=== PATIENT | female | born 1995 | race Two or more races ===

== ENCOUNTER 2017-06-10 01:24 | Emergency (ER) | payer MEDICAID ==
[2017-06-10 01:36] VITALS: BP 116/84
--- NOTE | 2017-06-10 03:26 | EDM.PDOC ---
ED HPI GENERAL MEDICAL PROBLEM - General Chief Complaint: CRIMINAL DEFENSE ATTORNEY Problem Stated Complaint: CRAMPING/BLEEDING/CHILLS Time Seen by Provider: 06/10/17 01:39 Source of Information: Reports: Patient, RN Notes Reviewed History Limitations: Reports: No Limitations - History of Present Illness INITIAL COMMENTS - FREE TEXT/NARRATIVE: The patient states that she has had four faintly positive home tests since this past 06/06/2017. The patient is sexually active, but does not use any protection, other than the rhythm method, to try to avoid . She developed suprapubic/pelvic cramping on , 06/07/2017. She then developed vaginal bleeding yesterday, 06/09/2017 around 09:00. Initially it was heavy, which is normal for her, as she has a history of menorrhagia, but then became light around 23:00, which is not normal for her. The patient has not passed any tissue. The patient took 800 mg of ibuprofen around noon yesterday. She states that she developed chills, shivers, and lightheadedness around 17:00. She is afebrile here in the ED. She reports recent breast tenderness. She denies having dysuria or urinary urgency, but reports urinary frequency. The patient is Ab1. Her LMP was 05/11/2017. The patient's PCP is Angela Montez. She does not have a Insulation Manager. She states that she moved to this area from [place] about 4 months ago. Lower Abdomen Pain Score (Numeric/FACES): 4 - Related Data Allergies Allergy/AdvReac Type Severity Reaction Status Date / Time dextromethorphan Allergy Fever Verified 06/10/17 01:33 [From Supress DX] [email or web address] [From Supress DX] Allergy Fever Verified 06/10/17 01:33 phenylephrine Allergy Fever Verified 06/10/17 01:33 [From Supress DX] Home Meds: Home Meds . 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: , Spontaneous (x 1), Other (See Below ) (Abnormal uterine bleeding (previously known as menorrhagia)) : 2 Para: 1 Psychiatric History: Reports: Depression, Mood Swings Endocrine/Metabolic History: Reports: Obesity/BMI 30+ - Past Surgical History HEENT Surgical History: Reports: Adenoidectomy, Naso-Sinus Surgery, Oral Surgery ([place] teeth extraction), Tonsillectomy GI Surgical History: Reports: Hernia, Abdominal (umbilical) Social & Family History - Tobacco Use Smoking Status *Q: Current Every Day Smoker Years of Tobacco use: 10 Packs/Tins Daily: 0.3 - Alcohol Use Alcohol Use History: Yes Days Per Week of Alcohol Use: 3 Number of Drinks Per Day: 1 Total Drinks Per Week: 3 Alcohol Use Frequency: Socially - Recreational Drug Use Recreational Drug Use: No - Living Situation & Occupation Living situation: Reports: Single, with Family (daughter) Occupation: Employed (analytical chemistry teacherretail sales assistant) ED ROS GENERAL - Review of Systems Review Of Systems: See Below Constitutional: Reports: No Symptoms HEENT: Reports: No Symptoms Respiratory: Reports: No Symptoms Cardiovascular: Reports: No Symptoms Endocrine: Reports: No Symptoms GI/Abdominal: Reports: No Symptoms : Reports: No Symptoms Musculoskeletal: Reports: No Symptoms Skin: Reports: No Symptoms Neurological: Reports: No Symptoms Psychiatric: Reports: No Symptoms Hematologic/Lymphatic: Reports: No Symptoms Immunologic: Reports: No Symptoms ED EXAM, GENERAL - Physical Exam Exam: See Below Exam Limited By: No Limitations General Appearance: Alert, WD/WN, No Apparent Distress Eye Exam: Bilateral Eye: Normal Inspection Ears: Normal External Exam, Hearing Grossly Normal Nose: Normal Inspection, No Blood Throat/Mouth: Normal Inspection, Normal Lips, Normal Voice, No Airway Compromise Head: Atraumatic, Normocephalic Neck: Normal Inspection, Full Range of Motion Respiratory/Chest: No Respiratory Distress, Lungs Clear, Normal Breath Sounds, No Accessory Muscle Use Cardiovascular: Normal Peripheral Pulses, Regular Rate, Rhythm, No Gallop, No JVD, No Murmur, No Rub Peripheral Pulses: 4+: Radial (L), Radial (R) GI/Abdominal: Normal Bowel Sounds, Soft, No Organomegaly, No Distention, No Abnormal Bruit, No Mass, Tender (Suprapubic tenderness only. Nontender elsewhere.), Other (Obese) (Female) Exam: Deferred Rectal (Female) Exam: Deferred Back Exam: Normal Inspection, Full Range of Motion. No: CVA Tenderness (L), CVA Tenderness (R) Extremities: Normal Inspection, Normal Range of Motion, No Pedal Edema, Normal Capillary Refill Neurological: Alert, Oriented, Normal Cognition, No Motor/Sensory Deficits Psychiatric: Normal Affect Skin Exam: Warm, Dry, Intact, Normal Color, No Rash Course - Vital Signs Last Recorded V/S: Last Vital Signs Temp 36.2 C 06/10/17 01:33 Pulse 80 06/10/17 01:33 Resp 16 06/10/17 01:33 BP 116/84 06/10/17 01:33 Pulse Ox 97 06/10/17 01:33 Orthostatic Blood Pressure [ 115/80 Standing] Orthostatic Blood Pressure [ 114/78 Sitting] Orthostatic Blood Pressure [ 115/80 Supine] - Orders/Labs/Meds Orders: Active Orders 24 hr Category Date Time Status Orthostatic Vital Signs [RC] STAT Care 06/10/17 01:57 Active Labs: Laboratory Tests 06/10/17 06/10/17 06/10/17 Range/Units 02:00 02:00 02:00 WBC 9.85 (3.98-10.04) K/mm3 RBC 5.38 H (3.98-5.22) M/mm3 Hgb 13.6 (11.2-15.7) gm/L Hct 41.3 (34.1-44.9) % MCV 76.8 L (79.4-94.8) fl MCH 25.3 L (25.6-32.2) pg MCHC 32.9 (32.2-35.5) g/dl RDW Std Deviation 38.7 (36.4-46.3) fL Plt Count 308 (182-369) K/mm3 MPV 9.8 (9.4-12.3) fl Neutrophils % (Manual) 67 H (40-60) % Band Neutrophils % 1 (0-10) % Lymphocytes % (Manual) 29 (20-40) % Atypical Lymphs % 0 % Monocytes % (Manual) 3 (2-10) % Eosinophils % (Manual) 0 L (0.7-5.8) % Basophils % (Manual) 0 L (0.1-1.2) Platelet Estimate Adequate RBC Morph Comment Normal Sodium 143 (136-145) mEq/L Potassium 3.6 (3.5-5.1) mEq/L Chloride 107 (98-107) mEq/L Carbon Dioxide 25 (21-32) mEq/L Anion Gap 14.6 (5-15) BUN 9 (7-18) mg/dL Creatinine 0.8 (0.55-1.02) mg/dL Est Cr Clr Drug Dosing 93.64 mL/min Estimated GFR (MDRD) > 60 (>60) mL/min BUN/Creatinine Ratio 11.3 L (14-18) Glucose 101 (74-106) mg/dL Calcium 8.9 (8.5-10.1) mg/dL Total Bilirubin 0.3 (0.2-1.0) mg/dL AST 20 (15-37) U/L ALT 29 (14-59) U/L Alkaline Phosphatase 94 (46-116) U/L Total Protein 7.0 (6.4-8.2) g/dl Albumin 3.6 (3.4-5.0) g/dl Globulin 3.4 gm/dL Albumin/Globulin Ratio 1.1 (1-2) HCG, Quant < 1.0 mIU/mL Urine Color (Yellow) Urine Appearance (Clear) Urine pH (5.0-8.0) Ur Specific [place] (1.005-1.030) Urine Protein (Negative) Urine Glucose (UA) (Negative) Urine Ketones (Negative) Urine Occult Blood (Negative) Urine Nitrite (Negative) Urine Bilirubin (Negative) Urine Urobilinogen (0.2-1.0) Ur Leukocyte Esterase (Negative) Urine RBC (0-5) /hpf Urine WBC (0-5) /hpf Ur Epithelial Cells (0-5) /hpf Urine Bacteria (FEW) /hpf Urine Mucus (FEW) /hpf 06/10/17 Range/Units 02:13 WBC (3.98-10.04) K/mm3 RBC (3.98-5.22) M/mm3 Hgb (11.2-15.7) gm/L Hct (34.1-44.9) % MCV (79.4-94.8) fl MCH (25.6-32.2) pg MCHC (32.2-35.5) g/dl RDW Std Deviation (36.4-46.3) fL Plt Count (182-369) K/mm3 MPV (9.4-12.3) fl Neutrophils % (Manual) (40-60) % Band Neutrophils % (0-10) % Lymphocytes % (Manual) (20-40) % Atypical Lymphs % % Monocytes % (Manual) (2-10) % Eosinophils % (Manual) (0.7-5.8) % Basophils % (Manual) (0.1-1.2) Platelet Estimate RBC Morph Comment Sodium (136-145) mEq/L Potassium (3.5-5.1) mEq/L Chloride (98-107) mEq/L Carbon Dioxide (21-32) mEq/L Anion Gap (5-15) BUN (7-18) mg/dL Creatinine (0.55-1.02) mg/dL Est Cr Clr Drug Dosing mL/min Estimated GFR (MDRD) (>60) mL/min BUN/Creatinine Ratio (14-18) Glucose (74-106) mg/dL Calcium (8.5-10.1) mg/dL Total Bilirubin (0.2-1.0) mg/dL AST (15-37) U/L ALT (14-59) U/L Alkaline Phosphatase (46-116) U/L Total Protein (6.4-8.2) g/dl Albumin (3.4-5.0) g/dl Globulin gm/dL Albumin/Globulin Ratio (1-2) HCG, Quant mIU/mL Urine Color Yellow (Yellow) Urine Appearance Clear (Clear) Urine pH 7.0 (5.0-8.0) Ur Specific [place] 1.025 (1.005-1.030) Urine Protein Negative (Negative) Urine Glucose (UA) Negative (Negative) Urine Ketones Negative (Negative) Urine Occult Blood Negative (Negative) Urine Nitrite Negative (Negative) Urine Bilirubin Negative (Negative) Urine Urobilinogen 0.2 (0.2-1.0) Ur Leukocyte Esterase Negative (Negative) Urine RBC Not seen (0-5) /hpf Urine WBC 0-5 (0-5) /hpf Ur Epithelial Cells 0-5 (0-5) /hpf Urine Bacteria Few (FEW) /hpf Urine Mucus Few (FEW) /hpf - Re-Assessments/Exams Free Text/Narrative Re-Assessment/Exam: 06/10/17 03:25 The patient is not orthostatic. 06/10/17 03:34 Test results discussed with the patient. The patient's quantitative hCG is undetectably low, indicating that not only is she is not currently , she has not been recently. Her current bleeding does not represent an ectopic or a miscarriage. Her current bleeding is simply a menstrual period. She does not have a urinary tract infection, she is not anemic, her electrolytes are normal, and she is not orthostatic. She may safely be discharged home. Departure - Departure Time of Disposition: 03:35 Disposition: Home, Self-Care 01 Condition: Good Clinical Impression: Abnormal menstrual periods - Discharge Information Instructions: Menorrhagia, [id number] Referrals: Angela Montez PA [Primary Care Provider] - Forms: ED Department Discharge Additional Instructions: You were seen in the emergency room for vaginal bleeding, initially heavy, but then light, along with pelvic cramps, and a possible positive test. Workup in the ER included blood work, a urinalysis, and positional blood pressure checks. Your quantitative hCG ( hormone) is undetectably low, meaning that not only are you not currently , you have not recently been , either. Your current vaginal bleeding is due to a menstrual period, not an ectopic or a miscarriage. The remainder of your tests were normal. You are not anemic. Your electrolytes are normal. You do not have a urinary tract infection. You are not volume depleted. Take [id number] ibuprofen as needed for menstrual cramps. If any other problems, please do not hesitate to return to the ER. - My Orders Last 24 Hours: My Active Orders 06/10/17 01:57 Orthostatic Vital Signs [RC] STAT - Assessment/Plan Last 24 Hours: My Active Orders 06/10/17 01:57 Orthostatic Vital Signs [RC] STAT
== END 2017-06-10 04:00 | disposition home or self-care (01) ==
LOC: JD.ED 01:24
DX: N92.6 Irregular menstruation, unspecified (principal); F17.210 Nicotine dependence, cigarettes, uncomplicated; Z88.8 Allergy status to other drugs, medicaments and biological substances
CPT/HCPCS: 36415; 80053; 81001; 84702; 85025; 99283; 99284